=== PATIENT | male | born 1970 | race Caucasian/White ===

== ENCOUNTER → 2016-10-14 | Outpatient (CLI) | payer OTHER ==
--- NOTE | 2016-10-14 17:53 | CT ---
EXAMINATION TYPE: CT abdomen pelvis w con DATE OF EXAM: 10/14/2016 5:37 PM COMPARISON: NONE HISTORY: Follow-up renal cyst. CT DLP: 1766.00 mGycm Automated exposure control for dose reduction was used. TECHNIQUE: Helical acquisition of images was performed from the lung bases through the pelvis. CONTRAST: Performed with Oral Contrast and with IV Contrast, patient injected with 100 mL of Omnipaque 300. FINDINGS: There is mild subsegmental atelectasis at the left posterior lung base. There is a 3 cm cyst in the s uperior right lobe of the liver. There is a 3 cm cyst near the rosa hepatis in the liver. There are clips from cholecystectomy. There is a 1 cm cyst in the left lobe of the liver. Bile ducts are not di lated. Spleen and pancreas appear normal. There is no adrenal mass. Kidneys show satisfactory contras t opacification. There is no hydronephrosis. There is a 2 cm cortical cyst on the lateral left kidney . There is no retroperitoneal adenopathy. The left renal cyst may contain 2 tiny calcifications that measure up to 3 mm. There is no ascites. Bladder distends smoothly. There are prostatic calcification s. There is no evidence of a pelvic mass. There are a few sigmoid diverticula. There is no evidence o f diverticulitis. The appendix appears normal. I see no intestinal wall thickening. There are no dila johnnie loops.: I see no bony destructive process. There is spondylolysis of L5 with a 4 mm L5-S1 spondyl olisthesis. There is no compression fracture. There is narrowing of L5-S1 disc space. IMPRESSION: MULTIPLE HEPATIC CYSTS. LEFT RENAL CORTICAL CYST MAY CONTAIN TINY CALCIFICATION. THE SIZE IS PROBABLY NOT CHANGED ACCORDING TO THE REPORT FROM ULTRASOUND OF 05/12/2016. I THINK THIS COULD BE FOLLOWED CO NSERVATIVELY WITH REPEAT ULTRASOUND IN ONE YEAR TO SHOW STABILITY. SPONDYLOLYSIS OF L5 WITH MINIMAL L5-S1 SPONDYLOLISTHESIS. ISOLATED SIGMOID DIVERTICULA.
== END | disposition home or self-care (01) ==
LOC: RADCTMAIN 15:56
PROVIDERS: ATTEND Internal Medicine
DX: Q61.01 Congenital single renal cyst (principal); K76.89 Other specified diseases of liver
CPT/HCPCS: 74177; Q9967

== ENCOUNTER → 2017-10-07 | Outpatient (CLI) | payer BC ==
--- NOTE | 2017-10-07 15:29 | US ---
EXAMINATION TYPE: US kidneys/renal and bladder DATE OF EXAM: 10/07/2017 COMPARISON: CT abdomen pelvis 10/14/2016, report of ultrasound kidneys 05/12/2016 CLINICAL HISTORY: N28.1 Acquired cyst of kidney. History of Renal cyst EXAM MEASUREMENTS: Right Kidney: 11.7 x 5.7 x 5.0 cm Left Kidney: 12.5 x 6.7 x 5.1 cm Right Kidney: no evidence of hydronephrosis or mass as visualized Left Kidney: complex cystic area mid = 1.9 x 2.1 x 1.7cm, dense echogenic areas noted posterior to cy st Bladder: wnl Bilateral Jets seen: Yes Prostate appears prominent and heterogeneous The cystic focus at the midpole the left kidney shows some internal architecture which corresponds to the CT findings, there is likely caliectasis at the level of the cystic focus with internal calculus . IMPRESSION: Findings show nonaggressive appearance and the cystic focus in the midpole the left kidney and have b een reported on previous exams. Follow-up could be performed to assess for stability.
== END | disposition home or self-care (01) ==
LOC: RADUSWWP 14:17
PROVIDERS: ATTEND Internal Medicine
DX: N28.1 Cyst of kidney, acquired (principal)
CPT/HCPCS: 76770

== ENCOUNTER 2018-04-12 11:53 | Emergency (ER) | payer BC ==
[2018-04-12 12:07] VITALS: RESP 18
[2018-04-12] MEDS ORDERED: SODIUM CHLORIDE 0.9% 1,000 ML IV STA (12:21)
[2018-04-12] MEDS ORDERED: DIPHENOX-ATROP 2.5-0.025 MG 1 EACH TAB PO STA (12:21)
[2018-04-12] MEDS ORDERED: ONDANSETRON 4 MG/2 ML VIAL IVP STA (12:21)
[2018-04-12] MEDS ORDERED: SODIUM CHLORIDE 0.9% 500 ML IV STA (12:21)
[2018-04-12] MEDS ORDERED: ACETAMINOPHEN TAB 500 MG TAB PO STA (12:22)
--- NOTE | 2018-04-12 12:25 | ED ---
General Adult HPI - General Chief complaint: Nausea/Vomiting/Diarrhea Stated complaint: vomiting Time Seen by Provider: 04/12/18 11:55 Source: patient, RN notes reviewed Mode of arrival: ambulatory Limitations: no limitations - History of Present Illness Initial comments: This is a 47-year-old male who presents emergency Department complaining of nausea vomiting and diarrhea since 10:00 on Tuesday night. Patient states he is but unable to keep any food or drink down since that time period and he continues to have vomiting and diarrhea. Patient denies any fever or chills. Patient states he gets pretty significant abdominal cramping but currently he has no pain. Patient states palpating his abdomen does not hurt. Patient denies any chest pain palpitations or any difficulty breathing. Patient denies any blood in the vomitus or diarrhea. Patient denies any recent use of antibiotics. Patient denies being around anyone with similar symptoms. Patient denies any lightheadedness dizziness or near syncopal episode. - Related Data Previous Rx's Medication Instructions Recorded Ondansetron Odt [Zofran Odt] 4 mg PO Q8HR PRN #10 tab 04/12/18 Allergies Allergy/AdvReac Type Severity Reaction Status Date / Time No Known Allergies Allergy Verified 04/12/18 12:08 Review of Systems ROS Statement: Those systems with pertinent positive or pertinent negative responses have been documented in the HPI. ROS Other: All systems not noted in ROS Statement are negative. Past Medical History Past Medical History: No Reported History History of Any Multi-Drug Resistant Organisms: None Reported Past Surgical History: Cholecystectomy, Hernia Repair Past Psychological History: No Psychological Hx Reported Smoking Status: Never smoker Past Alcohol Use History: Occasional Past Drug Use History: None Reported General Exam - General Exam Comments Initial Comments: GENERAL: Patient is well-developed and well-nourished. Patient is nontoxic and well- hydrated and is in mild distress. ENT: Neck is soft and supple. No significant lymphadenopathy is noted. Oropharynx is clear. Dry mucous membranes. Neck has full range of motion without eliciting any pain. EYES: The sclera were anicteric and conjunctiva were pink and moist. Extraocular movements were intact and pupils were equal round and reactive to light. Eyelids were unremarkable. PULMONARY: Unlabored respirations. Good breath sounds bilaterally. No audible rales rhonchi or wheezing was noted. CARDIOVASCULAR: There is a regular rate and rhythm without any murmurs gallops or rubs. ABDOMEN: Soft and nontender with normal bowel sounds. SKIN: Skin is clear with no lesions or rashes and otherwise unremarkable. NEUROLOGIC: Patient is alert and oriented x3. Cranial nerves II through XII are grossly intact. Motor and sensory are also intact. Normal speech, volume and content. Symmetrical smile. MUSCULOSKELETAL: Normal extremities with adequate strength and full range of motion. LYMPHATICS: No significant lymphadenopathy is noted PSYCHIATRIC: Normal psychiatric evaluation. Limitations: no limitations Course Vital Signs 04/12/18 04/12/18 12:05 12:23 Temperature 98.8 F 99.9 F H Pulse Rate 65 Respiratory 18 Rate Blood Pressure 129/86 O2 Sat by Pulse 98 Oximetry Medical Decision Making - Medical Decision Making Patient got 1500 mL fluid. Patient was doing considerably better no vomiting or diarrhea in the emergency department. Patient states she still occasionally was getting some abdominal cramping but otherwise felt good. - Lab Data Result diagrams: 04/12/18 12:30 04/12/18 12:30 Lab Results 04/12/18 04/12/18 Range/Units 12:30 12:30 WBC 13.3 H (3.8-10.6) k/uL RBC 5.57 (4.30-5.90) m/uL Hgb 17.4 (13.0-17.5) gm/dL Hct 49.8 (39.0-53.0) % MCV 89.3 (80.0-100.0) fL MCH 31.2 (25.0-35.0) pg MCHC 35.0 (31.0-37.0) g/dL RDW 12.0 (11.5-15.5) % Plt Count 220 (150-450) k/uL Neutrophils % 82 % Lymphocytes % 11 % Monocytes % 5 % Eosinophils % 1 % Basophils % 0 % Neutrophils # 10.9 H (1.3-7.7) k/uL Lymphocytes # 1.5 (1.0-4.8) k/uL Monocytes # 0.6 (0-1.0) k/uL Eosinophils # 0.1 (0-0.7) k/uL Basophils # 0.0 (0-0.2) k/uL Sodium 141 (137-145) mmol/L Potassium 4.0 (3.5-5.1) mmol/L Chloride 105 (98-107) mmol/L Carbon Dioxide 29 (22-30) mmol/L Anion Gap 7 mmol/L BUN 21 H (9-20) mg/dL Creatinine 0.91 (0.66-1.25) mg/dL Est GFR (CKD-EPI)AfAm >90 (>60 ml/min/1.73 sqM) Est GFR (CKD-EPI)NonAf >90 (>60 ml/min/1.73 sqM) Glucose 103 H (74-99) mg/dL Calcium 9.3 (8.4-10.2) mg/dL Total Bilirubin 1.2 (0.2-1.3) mg/dL AST 21 (17-59) U/L ALT 37 (21-72) U/L Alkaline Phosphatase 52 (38-126) U/L Total Protein 7.0 (6.3-8.2) g/dL Albumin 4.0 (3.5-5.0) g/dL Amylase 59 (30-110) U/L Lipase 97 (23-300) U/L Disposition Clinical Impression: Gastroenteritis Disposition: HOME SELF-CARE Instructions: Gastroenteritis (ED) Prescriptions: Ondansetron Odt [Zofran Odt] 4 mg PO Q8HR PRN #10 tab PRN Reason: Nausea And Vomiting Is patient prescribed a controlled substance at d/c from ED?: No Referrals: Savannah Adams MD [Primary Care Provider] - 1-2 days Time of Disposition: 13:38
[2018-04-12 13:03] LABS: Basophils % (A) 0 %; Eosinophils # (A) 0.1 k/uL (0-0.7); Eosinophils % (A) 1 %; HCT 49.8 % (39.0-53.0); HGB 17.4 gm/dL (13.0-17.5); Lymphocytes # (A) 1.5 k/uL (1.0-4.8); Lymphocytes % (A) 11 %; MCH 31.2 pg (25.0-35.0); MCV 89.3 fL (80.0-100.0); Mean Platelet Volume 8.5; Monocytes # (A) 0.6 k/uL (0-1.0); Monocytes % (A) 5 %; Neutrophils # (A) 10.9 k/uL (1.3-7.7); Neutrophils % (A) 82 %; Platelet Count 220 k/uL (150-450); RBC 5.57 m/uL (4.30-5.90); WBC 13.3 k/uL (3.8-10.6)
[2018-04-12 13:08] LABS: ALT 37 U/L (21-72); AST 21 U/L (17-59); Alkaline Phosphatase 52 U/L (38-126); Amylase 59 U/L (30-110); Anion Gap 7 mmol/L; Blood Urea Nitrogen 21 mg/dL (9-20); Calcium 9.3 mg/dL (8.4-10.2); Carbon Dioxide 29 mmol/L (22-30); Chloride 105 mmol/L (98-107); Glucose 103 mg/dL (74-99); Lipase 97 U/L (23-300); Sodium 141 mmol/L (137-145); Total Bilirubin 1.2 mg/dL (0.2-1.3)
[2018-04-12] MEDS ORDERED: DIPHENOX-ATROP STARTER PACK 8 TAB BTL PO PRN (13:39)
[2018-04-12 13:55] VITALS: BP 132/72; PULSE 63; TEMP 98.2
== END 2018-04-12 13:50 | disposition home or self-care (01) ==
LOC: EC 11:53
DX: K52.9 Noninfective gastroenteritis and colitis, unspecified (principal); Z90.49 Acquired absence of other specified parts of digestive tract
CPT/HCPCS: 36415; 80053; 82150; 83690; 85025; 96361; 96374; 99284

== ENCOUNTER → 2019-03-06 | Outpatient (CLI) | payer BC ==
--- NOTE | 2019-03-06 15:41 | XR ---
Left hand and left forearm HISTORY: Trauma 2 weeks prior, pain 2 views of left forearm, 3 views of left hand submitted. Bone mineralization, joint spaces and alignment are maintained. IMPRESSION: No evident fracture or dislocation of the left hand or forearm.
== END | disposition home or self-care (01) ==
LOC: RADXRYALE 11:59
PROVIDERS: ATTEND Internal Medicine
DX: M79.602 Pain in left arm (principal)

== ENCOUNTER → 2020-01-10 | Outpatient (CLI) | payer BC | END | disposition home or self-care (01) | LOC: LABWHC1 12:01 | PROVIDERS: ATTEND Internal Medicine | DX: R05 Cough (principal); Z11.59 Encounter for screening for other viral diseases ==

== ENCOUNTER → 2020-01-17 | Outpatient (CLI) | payer BC | END | disposition home or self-care (01) | LOC: LABWHC1 12:31 | PROVIDERS: ATTEND Internal Medicine | DX: Z11.59 Encounter for screening for other viral diseases (principal) ==

== ENCOUNTER → 2024-03-14 | Outpatient (CLI) | payer OTHER ==
--- NOTE | 2024-03-14 18:57 | XR ---
EXAMINATION TYPE: XR foot complete LT DATE OF EXAM: 03/14/2024 COMPARISON: None HISTORY: Left foot pain and numbness x2 weeks TECHNIQUE: 3 view left foot FINDINGS: No acute fracture or dislocation evident. Joint spaces are served. Soft tissues appear norm al. Follow-up can be performed as clinically indicated. IMPRESSION: 1. No acute osseous abnormality left foot
== END | disposition home or self-care (01) ==
LOC: RADXRYALE 16:03
PROVIDERS: ATTEND Internal Medicine
DX: M79.672 Pain in left foot